=== PATIENT | male | born 1960 | race Caucasian/White ===

== ENCOUNTER 2018-03-24 11:38 | Day surgery (SDC) | payer BC ==
[2018-03-24] MEDS: SOD CHLORIDE 0.9% 1,000 ML IV (12:17)
[2018-03-24 12:19] LABS: ADD MAN DIFF? NO
[2018-03-24 12:22] LABS: WHITE BLOOD COUNT 7.4 10^3/ul (4.8-10.8)
[2018-03-24 12:22] LABS: BASOPHILS % 0.5 % (0.0-2.0); EOSINOPHILS # 0.2 10^3/ul (0.0-0.5); HEMATOCRIT 44.4 % (42.0-52.0); HEMOGLOBIN 15.8 g/dl (14.0-18.0); LYMPHOCYTES # 2.1 10^3/ul (0.8-2.9); LYMPHOCYTES % 27.6 % (15.0-51.0); MEAN CORPUSCULAR HEMOGLOBIN 30.4 pg (29.0-33.0); MEAN CORPUSCULAR HGB CONC 35.6 g/dl (32.0-37.0); MEAN CORPUSCULAR VOLUME 85.5 fl (82.0-101.0); MEAN PLATELET VOLUME 9.4 fl (7.4-10.4); MONOCYTE # 0.6 10^3/ul (0.3-0.9); MONOCYTES % 7.7 % (0.0-11.0); NEUTROPHIL # 4.6 10^3/ul (1.6-7.5); NEUTROPHILS % 61.4 % (39.0-77.0); PLATELET COUNT 231 10^3/UL (140-415); RED BLOOD COUNT 5.19 10^6/ul (4.70-6.10); RED CELL DISTRIBUTION WIDTH 11.9 % (11.5-14.5)
[2018-03-24 12:41] LABS: ALANINE AMINOTRANSFERASE 35 IU/L (13-69); ALBUMIN 4.7 g/dl (3.3-4.9); ALBUMIN/GLOBULIN RATIO 1.42; ALKALINE PHOSPHATASE 104 IU/L (42-121); ANION GAP 14 (8-16); ASPARTATE AMINO TRANSFERASE 34 IU/L (15-46); BLOOD UREA NITROGEN 12 mg/dl (7-20); CALCIUM 9.6 mg/dl (8.4-10.2); CARBON DIOXIDE 24 mmol/L (21-31); CHLORIDE 111 mmol/L (97-110); CREATININE 0.76 mg/dl (0.61-1.24); GLUCOSE 94 mg/dl (70-220); POTASSIUM 3.8 mmol/L (3.5-5.1); SODIUM 145 mmol/L (135-144)
[2018-03-24 12:42] LABS: INR 0.96; PARTIAL THROMBOPLASTIN TIME 29.6 Sec (25.0-35.0); PROTIME 12.9 Sec (11.9-14.9)
[2018-03-24] MEDS ORDERED: CEFAZOLIN 2 GM/50 ML (PMX) 50 ML IVPB (15:00)
[2018-03-24] MEDS ORDERED: ROPIVACAINE 0.5 % 30 ML VIAL (16:04)
[2018-03-24] MEDS ORDERED: MIDAZOLAM 1 MG/ML 2 ML INJ (16:04)
[2018-03-24] MEDS ORDERED: METOCLOPRAMIDE 10 MG INJ (16:04)
[2018-03-24] MEDS ORDERED: POLYMYXIN/BACITRACIN 1L IRRIG (16:31)
[2018-03-24] MEDS ORDERED: FENTAnyl 50 MCG/ML VIAL (17:06)
[2018-03-24] MEDS ORDERED: NEOSTIGMINE 3 MG/3 ML SYRINGE (17:07)
[2018-03-24] MEDS ORDERED: ROCURONIUM 50 MG INJ (17:07)
[2018-03-24] MEDS ORDERED: GLYCOPYRROLATE 0.4 MG INJ (17:07)
[2018-03-24] MEDS ORDERED: ONDANSETRON 4 MG INJ (17:07)
[2018-03-24] MEDS ORDERED: ROPIVACAINE 0.2% 20 ML VIAL (17:07)
[2018-03-24] MEDS ORDERED: CEFAZOLIN 1 GM INJ (17:07)
[2018-03-24] MEDS ORDERED: PROPOFOL 20 ML (17:07)
[2018-03-24] MEDS ORDERED: KETOROLAC 30 MG INJ (17:08)
[2018-03-24] MEDS ORDERED: OXYCODONE/ACETAMINOPHEN (5/325) TAB PO (17:30)
[2018-03-24] MEDS ORDERED: DIPHENHYDRAMINE 50 MG INJ IV (17:30)
[2018-03-24] MEDS ORDERED: hydrALAzine 20 MG INJ IV (17:30)
[2018-03-24] MEDS ORDERED: LABETALOL HCL 20MG INJ IV (17:30)
[2018-03-24] MEDS ORDERED: HYDROmorphONE 1 MG/5 ML IV SYRINGE IV ×3 (17:30)
[2018-03-24] MEDS: ONDANSETRON 4 MG INJ IV (17:57)
[2018-03-24] MEDS: MEPERIDINE 25 MG INJ IV (17:57)
[2018-03-24] MEDS: OXYCODONE/ACETAMINOPHEN (5/325) TAB PO (17:57)
== END 2018-03-24 19:16 | disposition home or self-care (01) ==
LOC: SDS 11:38
DX: K43.9 Ventral hernia without obstruction or gangrene (principal); E66.9 Obesity, unspecified; Z68.27 Body mass index [BMI] 27.0-27.9, adult
CPT/HCPCS: 49652; 71045; 80053; 85025; 85610; 85730; 93005